=== PATIENT | female | born 1960 | race Caucasian/White ===

== ENCOUNTER 2018-02-25 15:20 | Emergency (ER) | payer OTHER ==
[2018-02-25] MEDS ORDERED: ACETAMINOPHEN 500 MG TAB ONE (15:55)
[2018-02-25] MEDS ORDERED: IBUPROFEN 200 MG TAB PO ONE (15:55)
--- NOTE | 2018-02-25 16:07 | EDPHYS ---
Physician Documentation [facility] Name: Libia Bronson Age: 57 yrs Sex: Female : 1960 Arrival Date: 02/25/2018 Time: 15:22 Bed 26 Private MD: ED Physician Asim Rizo HPI: 02/25 15:53 This 57 yrs old Female presents to ER via Ambulatory with complaints of wa Shoulder Pain. 15:53 The patient or guardian complains of Right shoulder pain. c/o pain x 5 months. states nd tore a tendon in R shoulder back in Sep 2017 and was sent to physical therapy. just cleared to go back to work. still having excruciating pain in R shoulder with tingling of the R arm. denies SOB, CP or diaphoresis.. right shoulder. Context: as noted in HPI above. Onset: The symptoms/episode began/occurred 5 month(s) ago. Modifying factors: the symptoms are alleviated by nothing. The symptoms are aggravated by lifting weight, movement, rotation of arm. Associated signs and symptoms: The patient has no apparent associated signs or symptoms. Severity of symptoms: At their worst the symptoms were moderate, in the emergency department the symptoms are actually worse. Treatment prior to arrival includes: no previous treatment. as noted in HPI above. The patient has not recently seen a physician. Historical: - Allergies: 15:28 No Known Allergies; aj - Home Meds: 15:28 None [Active]; aj - PMHx: 15:28 Hypertension; aj - PSHx: 15:28 Hysterectomy; Tonsillectomy; Kidney stents; aj - Immunization history:: Adult Immunizations up to date. - Social history:: Smoking status: Patient uses tobacco products, smokes one-half pack cigarettes per day. - Family history:: not pertinent. - Hospitalizations: : No recent hospitalization is reported. ROS: 15:57 Constitutional: Negative for fever, chills, and weight loss, Eyes: Negative for injury, wa pain, redness, and discharge, ENT: Negative for injury, pain, and discharge, Neck: Negative for injury, pain, and swelling, Cardiovascular: Negative for chest pain, palpitations, and edema, Respiratory: Negative for shortness of breath, cough, wheezing, and pleuritic chest pain, Abdomen/GI: Negative for abdominal pain, nausea, vomiting, diarrhea, and constipation, Back: Negative for injury and pain, : Negative for injury, bleeding, discharge, and swelling, Skin: Negative for injury, rash, and discoloration. 15:57 MS/extremity: Positive for pain, paresthesias, tenderness, of the right shoulder, Negative for deformity, swelling. 15:57 Neuro: Positive for numbness, tingling, of the right shoulder and right arm. 15:57 All other systems are negative. Exam: 16:00 Constitutional: This is a well developed, well nourished patient who is awake, alert, wa and in no acute distress. Head/Face: Normocephalic, atraumatic. Eyes: Pupils equal round and reactive to light, extra-ocular motions intact. Lids and lashes normal. Conjunctiva and sclera are non-icteric and not injected. Cornea within normal limits. Periorbital areas with no swelling, redness, or edema. ENT: Nares patent. No nasal discharge, no septal abnormalities noted. Tympanic membranes are normal and external auditory canals are clear. Oropharynx with no redness, swelling, or masses, exudates, or evidence of obstruction, uvula midline. Mucous membranes moist. Neck: Trachea midline, no thyromegaly or masses palpated, and no cervical lymphadenopathy. Supple, full range of motion without nuchal rigidity, or vertebral point tenderness. No Meningismus. Cardiovascular: Regular rate and rhythm with a normal S1 and S2. No gallops, murmurs, or rubs. Normal PMI, no JVD. No pulse deficits. Respiratory: Lungs have equal breath sounds bilaterally, clear to auscultation and percussion. No rales, rhonchi or wheezes noted. No increased work of breathing, no retractions or nasal flaring. Abdomen/GI: Soft, non-tender, with normal bowel sounds. No distension or tympany. No guarding or rebound. No evidence of tenderness throughout. Back: No spinal tenderness. No costovertebral tenderness. Full range of motion. Skin: Warm, dry with normal turgor. Normal color with no rashes, no lesions, and no evidence of cellulitis. Psych: Awake, alert, with orientation to person, place and time. Behavior, mood, and affect are within normal limits. 16:00 Musculoskeletal/extremity: Extremities: grossly normal except: noted in the right shoulder: tenderness, ROM: limited ROM in R shoulder due to pain. 16:00 Neuro: Orientation: is normal, Motor: motor strength diminished in RUE due to pain, Sensation: is normal. Vital Signs: 15:28 BP 188 / 100; Pulse 74; Resp 19; Temp 97.9; Pulse Ox 98% on R/A; Weight 79.83 kg; aj Height 5 ft. 2 in. (157.48 cm); Pain 7/10; 15:28 Body Mass Index 32.19 (79.83 kg, 157.48 cm) aj Procedures: 16:05 Performed sling: RUE placed in sling. post-placement distally neurovasc intact. pt wa tolerated well. advised prn use for comfort. MDM: 15:34 Patient medically screened. wa 16:02 Differential diagnosis: MRI report in the system from 10/14/17 of the R shoulder read wa as full-thickness tear of the supraspinatus tendon without retraction. Data reviewed: vital signs, nurses notes, radiologic studies. Special discussion: pt never had an ortho eval. will send to ortho for further eval. will place in sling. valium for nerve pain and relaxation. motrin prn. of noted, pt smokes cigs. advised against smoking. BP elevated. pain reproducible. no SOB, no chest pain or dizziness. ACS unlikely as a differential. 02/25 15:49 Order name: Sling: John BOOTHE; Complete Time: 16:03 nd Administered Medications: 15:58 Drug: Tylenol 1000 mg Route: PO; rk2 16:19 Follow up: Response: No adverse reaction rk2 15:58 Drug: Motrin 600 mg Route: PO; rk2 16:18 Follow up: Response: No adverse reaction rk2 Disposition: 02/25/18 16:07 Discharged to Home. Impression: Right Shoulder supraspinatus tendon tear. - Condition is Stable. - Prescriptions for Ibuprofen 600 mg Oral Tablet - take 1 tablet by ORAL route every 8 hours As needed take with food; 30 tablet. Valium 5 mg Oral Tablet - take 1 tablet by ORAL route At bedtime As needed; 5 tablet. - Medication Reconciliation Form, Thank You Letter, Antibiotic Education, Prescription Opioid Use, Work release form form. - Follow up: Pako Walsh MD; When: 2 - 3 days; Reason: Recheck today's complaints. - Problem is an ongoing problem. - Symptoms have improved. - Notes: wear sling. take medicines as prescribed. follow up with the orthopedists as discussed for further evaluation of the torn tendon in your shoulder Signatures: Trina Bowens, RN CYNDIE aj Asim Rizo MD MD wa Kidder, Rhonda, RN RN rk2
--- NOTE | 2018-02-25 16:07 | ER ---
Nurse's Notes [facility] Name: Libia Bronson Age: 57 yrs Sex: Female : 1960 Arrival Date: 02/25/2018 Time: 15:22 Bed 26 Private MD: Diagnosis: Right Shoulder supraspinatus tendon tear Presentation: 02/25 15:26 Presenting complaint: Patient states: Patient reports pain in right shoulder since aj September when she "tore a tendon". Reports tingling down right arm. Transition of care: patient was not received from another setting of care. Onset of symptoms was September 2017. Care prior to arrival: None. 15:26 Method Of Arrival: Ambulatory 15:26 Acuity: CLAIRE 4 aj Triage Assessment: 15:28 General: Appears in no apparent distress. uncomfortable, Behavior is calm, cooperative, aj appropriate for age. Pain: Complains of pain in anterior aspect of right shoulder Pain currently is 7 out of 10 on a pain scale. Neuro: Level of Consciousness is awake, alert, obeys commands, Oriented to person, place, time, situation. Respiratory: Airway is patent Respiratory effort is even, unlabored, Respiratory pattern is regular, symmetrical. Derm: Skin is intact, is healthy with good turgor, Skin is pink, warm \\T\\ dry. normal. Musculoskeletal: Reports pain in anterior aspect of right shoulder. Historical: - Allergies: 15:28 No Known Allergies; aj - Home Meds: 15:28 None [Active]; aj - PMHx: 15:28 Hypertension; aj - PSHx: 15:28 Hysterectomy; Tonsillectomy; Kidney stents; aj - Immunization history:: Adult Immunizations up to date. - Social history:: Smoking status: Patient uses tobacco products, smokes one-half pack cigarettes per day. - Family history:: not pertinent. - Hospitalizations: : No recent hospitalization is reported. Screenin:00 Abuse screen: Denies threats or abuse. rk2 16:00 Nutritional screening: No deficits noted. Tuberculosis screening: No symptoms or risk rk2 factors identified. Fall Risk None identified. Assessment: 16:00 General: Appears uncomfortable, well nourished, Behavior is calm, cooperative. Pain: rk2 Complains of pain in right shoulder and right arm and anterior aspect of right shoulder. Neuro: Level of Consciousness is alert, obeys commands, Oriented to person, place, time, situation. Respiratory: Airway is patent Respiratory effort is even, unlabored, Respiratory pattern is regular, symmetrical. 16:00 Derm: Skin is pink, warm \\T\\ dry. Musculoskeletal: Right shoulder pain. rk2 Vital Signs: 15:28 BP 188 / 100; Pulse 74; Resp 19; Temp 97.9; Pulse Ox 98% on R/A; Weight 79.83 kg; aj Height 5 ft. 2 in. (157.48 cm); Pain 7/10; 15:28 Body Mass Index 32.19 (79.83 kg, 157.48 cm) aj ED Course: 15:22 Patient arrived in ED. as 15:27 Triage completed. aj 15:28 Arm band placed on left wrist. Patient placed in an exam room. 15:30 Sheridan Fitzgerald RN is Primary Nurse. rk2 15:34 Asim Rizo MD is Attending Physician. tx 16:00 Patient has correct armband on for positive identification. Bed in low position. Call rk2 light in reach. 16:06 Pako Walsh MD is Referral Physician. wa 16:21 No provider procedures requiring assistance completed. Patient did not have IV access rk2 during this emergency room visit. Administered Medications: 15:58 Drug: Tylenol 1000 mg Route: PO; rk2 16:19 Follow up: Response: No adverse reaction rk2 15:58 Drug: Motrin 600 mg Route: PO; rk2 16:18 Follow up: Response: No adverse reaction rk2 Outcome: 16:07 Discharge ordered by . wa 16:21 Discharged to home ambulatory. rk2 16:21 Condition: unchanged 16:21 Discharge instructions given to patient, Prescriptions given X 2. 16:22 Patient left the ED. rk2 Signatures: Trina Bowens RN Marisol Eagle William, MD MD tx Sheridan Fitzgerald RN RN rk2
[2018-02-25 16:27] VITALS: BP 188/100; TEMP 97.9; O2SAT 98
== END 2018-02-25 16:22 | disposition home or self-care (01) ==
LOC: ER 15:20
DX: S46.811A Strain of other muscles, fascia and tendons at shoulder and upper arm level, right arm, initial encounter (principal); I10 Essential (primary) hypertension; F17.210 Nicotine dependence, cigarettes, uncomplicated; X58.XXXA Exposure to other specified factors, initial encounter; Y93.9 Activity, unspecified; Y92.9 Unspecified place or not applicable
CPT/HCPCS: 99283

== ENCOUNTER 2018-12-26 14:52 | Emergency (ER) | payer OTHER, SELFPAY ==
[2018-12-26] MEDS ORDERED: DIAZEPAM 5 MG TABLET ONE (17:05)
--- NOTE | 2018-12-26 17:12 | RAD REPORT ---
EXAM DESCRIPTION: CT - [id number] - 12/26/2018 4:53 pm CLINICAL HISTORY: Blunt force trauma to the head, headache, neck pain COMPARISON: None. TECHNIQUE: Axial 5 mm thick images of the head were obtained. Axial 2 mm thick images of the cervic al spine were obtained with sagittal and coronal reconstruction images generated and reviewed. All CT scans are performed using dose optimization technique as appropriate and may include automated exposure control or mA/KV adjustment according to patient size. FINDINGS: No intracranial hemorrhage, mass, edema or acute intracranial finding. No suspicion for ac vish infarction. No extra-axial fluid collections. Mastoid air cells and paranasal sinuses are clear o f significant finding. No globe or orbit abnormality seen. Small left frontal scalp hematoma is prese nt. Cervical body height and alignment are normal. C4-5, C5-6 and C6-7 disc space narrowing present. Mild bony foraminal encroachment at C4-5 and C5-6. Mild to moderate left C6-7 bony foraminal encroachment . No fracture or acute bony abnormality. No paraspinal mass or hematoma. IMPRESSION: No intracranial abnormality. Patient has a small left frontal scalp hematoma. Underlying bone is intact. Cervical spine degenerative changes are present without acute finding.
--- NOTE | 2018-12-26 17:16 | EDPHYS ---
Physician Documentation [facility] Name: Libia Bronson Age: 58 yrs Sex: Female : 1960 Arrival Date: 12/26/2018 Time: 14:56 Bed 11 Private MD: Jose Alejandro Juárez ED Physician Jimmy Ibrahim HPI: 12/26 17:20 This 58 yrs old Female presents to ER via Ambulatory with complaints of snw Closed Head Injury-Adult, Dizziness. 17:20 The patient's problem is reported as headache. Onset: The symptoms/episode snw began/occurred suddenly, and became persistent. Duration: The episode is continuous. Context: occurred at work, occurred while the patient was working, Possible contributing factors include: none, no LOC. Associated signs and symptoms: Pertinent positives: headache. Severity of symptoms: At their worst the symptoms were moderate in the emergency department the symptoms are unchanged. Patient's baseline: Neuro: alert and fully oriented, Motor: no deficits, Ambulation: walks without assistance, Speech: normal. The patient has not experienced similar symptoms in the past. It is unknown whether or not the patient has recently seen a physician. Historical: - Allergies: 15:00 No Known Drug Allergies; hb - PMHx: 15:00 Hypertension; hb - PSHx: 15:00 Hysterectomy; Tonsillectomy; Kidney stents; hb - Immunization history:: Adult Immunizations up to date. - Social history:: Smoking status: Patient/guardian denies using tobacco. - Ebola Screening: : No symptoms or risks identified at this time. ROS: 17:05 Constitutional: Negative for fever, chills, and weight loss, Eyes: Negative for injury, snw pain, redness, and discharge, ENT: Negative for injury, pain, and discharge, Neck: Negative for injury, pain, and swelling, Cardiovascular: Negative for chest pain, palpitations, and edema, Respiratory: Negative for shortness of breath and pleuritic chest pain, + cough and wheezing Abdomen/GI: Negative for abdominal pain, nausea, vomiting, diarrhea, and constipation, Back: Negative for injury and pain, : Negative for injury, bleeding, discharge, and swelling, MS/Extremity: Negative for injury and deformity, Skin: Negative for injury, rash, and discoloration. 17:05 Neuro: Positive for headache, s/p being struck in the head with a large can from an upper shelf. Exam: 17:05 Constitutional: This is a well developed, well nourished patient who is awake, alert, snw and in no acute distress. Head/Face: Normocephalic, atraumatic. Eyes: Pupils equal round and reactive to light, extra-ocular motions intact. Lids and lashes normal. Conjunctiva and sclera are non-icteric and not injected. Cornea within normal limits. Periorbital areas with no swelling, redness, or edema. ENT: Nares patent. No nasal discharge, no septal abnormalities noted. Tympanic membranes are normal and external auditory canals are clear. Oropharynx with no redness, swelling, or masses, exudates, or evidence of obstruction, uvula midline. Mucous membranes moist. Neck: Trachea midline, no thyromegaly or masses palpated, and no cervical lymphadenopathy. Supple, full range of motion without nuchal rigidity, or vertebral point tenderness. No Meningismus. Chest/axilla: Normal chest wall appearance and motion. Nontender with no deformity. No lesions are appreciated. Cardiovascular: Regular rate and rhythm with a normal S1 and S2. No gallops, murmurs, or rubs. Normal PMI, no JVD. No pulse deficits. Respiratory: Lungs have equal breath sounds bilaterally, clear to auscultation and percussion. No rales, rhonchi or wheezes noted. No increased work of breathing, no retractions or nasal flaring. Abdomen/GI: Soft, non-tender, with normal bowel sounds. No distension or tympany. No guarding or rebound. No evidence of tenderness throughout. Back: No spinal tenderness. No costovertebral tenderness. Full range of motion. Skin: Warm, dry with normal turgor. Normal color with no rashes, no lesions, and no evidence of cellulitis. MS/ Extremity: Pulses equal, no cyanosis. Neurovascular intact. Full, normal range of motion. Neuro: Awake and alert, GCS 15, oriented to person, place, time, and situation. Cranial nerves II-XII grossly intact. Motor strength 5/5 in all extremities. Sensory grossly intact. Cerebellar exam normal. Normal gait. Psych: Awake, alert, with orientation to person, place and time. Behavior, mood, and affect are within normal limits. 17:22 Radiologist reports: cervical degenerative changes, no blood, + scalp hematoma, no snw underlying bony abnormality Vital Signs: 15:01 BP 171 / 93; Pulse 59; Resp 18; Temp 98.2; Pulse Ox 96% ; Pain 8/10; hb Morris Coma Score: 15:00 Eye Response: spontaneous(4). Verbal Response: oriented(5). Motor Response: obeys hb commands(6). Total: 15. MDM: 16:34 Patient medically screened. snw 17:17 Data reviewed: vital signs, nurses notes. Data interpreted: Pulse oximetry: on room air snw is 96 %. Interpretation: acceptable. Counseling: I had a detailed discussion with the patient and/or guardian regarding: the historical points, exam findings, and any diagnostic results supporting the discharge/admit diagnosis, the presence of at least one elevated blood pressure reading (>120/80) during this emergency department visit, radiology results, the need for outpatient follow up, to return to the emergency department if symptoms worsen or persist or if there are any questions or concerns that arise at home. 12/26 15:07 Order name: CT Head C Spine; Complete Time: 17:14 snw Administered Medications: 17:06 Drug: Valium 5 mg Route: PO; ss Disposition: 18:37 Co-signature as Attending Physician, Jimmy Ibrahim MD. rn Disposition: 12/26/18 17:16 Discharged to Home. Impression: Unspecified injury of head, Scalp hematoma, Other cervical disc degeneration. - Condition is Stable. - Discharge Instructions: Cervical Radiculopathy, Head Injury, Adult, Hematoma, Hypertension. - Prescriptions for Diclofenac Sodium 75 mg Oral Tablet Sustained Release - take 1 tablet by ORAL route 2 times per day; 30 tablet. orphenadrine citrate 100 mg Oral Tablet Sustained Release - take 1 tablet by ORAL route 2 times per day As needed; 20 tablet. - Work release form, Medication Reconciliation Form, Thank You Letter, Antibiotic Education, Prescription Opioid Use form. - Follow up: Jose Alejandro Juárez MD; When: 1 - 2 days; Reason: Recheck today's complaints, Continuance of care, Re-evaluation by your physician. Follow up: Emergency Department; When: As needed; Reason: Worsening of condition. Signatures: Dispatcher [employer] EDMS Gabby Clark, TOOL ENGINE LATHE SET UP OPERATOR-C TOOL ENGINE LATHE SET UP OPERATOR-Csnw IbrahimJimmy hampton MD MD rn Smirch, Shelby, RN RN ss Lina Do RN RN Corrections: (The following items were deleted from the chart) 15:28 15:03 Head Brain Wo Cont+CT.RAD.BRZ ordered. EDMS EDMS 17:28 17:16 12/26/2018 17:16 Discharged to Home. Impression: Unspecified injury of head; ss Scalp hematoma; Other cervical disc degeneration. Condition is Stable. Forms are Medication Reconciliation Form, Thank You Letter, Antibiotic Education, Prescription Opioid Use. Follow up: Jose Alejandro Juárez; When: 1 - 2 days; Reason: Recheck today's complaints, Continuance of care, Re-evaluation by your physician. Follow up: Emergency Department; When: As needed; Reason: Worsening of condition. snw
--- NOTE | 2018-12-26 17:16 | ER ---
Nurse's Notes [facility] Name: Libia Bronson Age: 58 yrs Sex: Female : 1960 Arrival Date: 12/26/2018 Time: 14:56 Bed 11 Private MD: Jose Alejandro Juárez Diagnosis: Unspecified injury of head;Scalp hematoma;Other cervical disc degeneration Presentation: 12/26 15:00 Mechanism of Injury: resulted from. hb 15:00 Presenting complaint: Patient states: "A can of caramel fell down and hit me on the head when I was reaching for another can on the top shelf." C/o headache 06/25 and dizziness. Denies LOC. Mild redness noted to left forehead. Transition of care: patient was not received from another setting of care. Onset of symptoms was December 26, 2018. Risk Assessment: Do you want to hurt yourself or someone else? Patient reports no desire to harm self or others. Care prior to arrival: None. 15:00 Method Of Arrival: Ambulatory hb 15:00 Acuity: CLAIRE 4 hb 17:00 Initial Sepsis Screen: Does the patient meet any 2 criteria? Does the patient have a ss suspected source of infection? No. Patient's initial sepsis screen is negative. Historical: - Allergies: 15:00 No Known Drug Allergies; hb - PMHx: 15:00 Hypertension; hb - PSHx: 15:00 Hysterectomy; Tonsillectomy; Kidney stents; hb - Immunization history:: Adult Immunizations up to date. - Social history:: Smoking status: Patient/guardian denies using tobacco. - Ebola Screening: : No symptoms or risks identified at this time. Screenin:27 Abuse screen: Denies threats or abuse. Denies injuries from another. Nutritional ss screening: No deficits noted. Tuberculosis screening: No symptoms or risk factors identified. Never had TB. Fall Risk None identified. Assessment: 17:00 General: Appears in no apparent distress. comfortable, Behavior is calm, cooperative, ss Denies fever, feeling ill, fatigue, chills. Pain: Complains of pain in scalp Pain currently is 7 out of 10 on a pain scale. Quality of pain is described as aching, tender, Is continuous. Neuro: Level of Consciousness is awake, alert, obeys commands, Oriented to person, place, time, situation, Speech is normal, Facial symmetry appears normal, Pupils are PERRLA, Reports mild dizziness. Cardiovascular: Capillary refill < 3 seconds is brisk in bilateral fingers. Respiratory: Airway is patent Respiratory effort is even, unlabored, Respiratory pattern is regular, symmetrical. GI: Patient currently denies abdominal pain, nausea, vomiting. EENT: Oral mucosa is moist. Throat is clear. Musculoskeletal: Circulation, motion, and sensation intact. Capillary refill < 3 seconds, is brisk, in bilateral fingers. Range of motion: intact in all extremities, Swelling absent. 17:27 Reassessment: Patient appears in no apparent distress at this time. Patient and/or ss family updated on plan of care and expected duration. Pain level reassessed. Patient is alert, oriented x 3, equal unlabored respirations, skin warm/dry/pink. Neuro: Level of Consciousness is awake, alert, obeys commands. Derm: Skin is intact, is healthy with good turgor, Skin is pink, warm \\T\\ dry. normal. Vital Signs: 15:01 BP 171 / 93; Pulse 59; Resp 18; Temp 98.2; Pulse Ox 96% ; Pain 8/10; hb [place] Coma Score: 15:00 Eye Response: spontaneous(4). Verbal Response: oriented(5). Motor Response: obeys hb commands(6). Total: 15. ED Course: 14:56 Patient arrived in ED. sb2 14:57 Jose Alejandro Juárez MD is Private Physician. sb2 14:59 Arm band placed on. hb 15:01 Triage completed. hb 16:34 Gabby Clark FNP-C is [facility]. snw 16:34 Jimmy Ibrahim MD is Attending Physician. snw 16:53 CT Head C Spine In Process Unspecified. EDMS 16:53 CT completed. Patient tolerated procedure well. bq 17:15 Jose Alejandro Juárez MD is Referral Physician. snw 17:27 Rosa Collins, CYNDIE is Primary Nurse. ss 17:27 Patient has correct armband on for positive identification. Bed in low position. Call ss light in reach. 17:28 No provider procedures requiring assistance completed. IV discontinued, intact, ss bleeding controlled, No redness/swelling at site. Pressure dressing applied. Administered Medications: 17:06 Drug: Valium 5 mg Route: PO; ss Outcome: 17:16 Discharge ordered by MD. snw 17:28 Discharged to home ambulatory. 17:28 Condition: good 17:28 Discharge instructions given to patient, Instructed on discharge instructions, follow up and referral plans. medication usage, Demonstrated understanding of instructions, follow-up care, medications, Prescriptions given X 2. 17:28 Patient left the ED. Signatures: Dispatcher [employer] EDMS Gabby Clark, GROUP SUPERVISOR YARD-C GROUP SUPERVISOR YARD-Csnw Meredith Aparicio Rosa Collins RN RN Lina Do RN RN Monica Gómez sb2 Corrections: (The following items were deleted from the chart) 15:03 15:00 Presenting complaint: Patient states: A can of caramel fell down and hit me on hb the head when I was reaching for another can on the top shelf. Denies LOC. Mild redness noted to left forehead. 15:04 15:00 Presenting complaint: Patient states: "A can of caramel fell down and hit me on hb the head when I was reaching for another can on the top shelf." C/o headache 10/10 and dizziness. Denies LOC. Mild redness noted to left forehead.
[2018-12-26 17:55] VITALS: BP 171/93; TEMP 98.2; O2SAT 96
== END 2018-12-26 17:28 | disposition home or self-care (01) ==
LOC: ER 14:52
DX: S09.90XA Unspecified injury of head, initial encounter (principal); S00.03XA Contusion of scalp, initial encounter; W20.8XXA Other cause of strike by thrown, projected or falling object, initial encounter; M50.30 Other cervical disc degeneration, unspecified cervical region
CPT/HCPCS: 70450; 72125; 99283

== ENCOUNTER 2018-12-30 13:11 | Emergency (ER) | payer SELFPAY ==
--- NOTE | 2018-12-30 15:12 | RAD REPORT ---
EXAM DESCRIPTION: CT - Head Brain Wo Cont - 12/30/2018 2:56 pm CLINICAL HISTORY: Transient alteration of awareness, dizziness COMPARISON: None. TECHNIQUE: Axial 5 mm thick images of the head were obtained without IV contrast. All CT scans are performed using dose optimization technique as appropriate and may include automated exposure control or mA/KV adjustment according to patient size. FINDINGS: No intracranial hemorrhage, mass, edema or shift of mid-line structures. No acute infarcti on changes seen. No abnormal extra-axial fluid collections. Ventricles are normal. Mastoid air cells and visualized portions of the paranasal sinuses are clear. No acute bony findings. A 2 centimeter area of hyperdensity is present in the left lateral frontal scalp. This is presumed to be hematoma from trauma. IMPRESSION: No intracranial abnormality. Small scalp hematoma in the lateral left frontal region. Underlying bone is intact.
[2018-12-30] MEDS ORDERED: IBUPROFEN 200 MG TAB PO ONE (15:13)
[2018-12-30] MEDS ORDERED: IBUPROFEN 400 MG TAB ONE (15:13)
--- NOTE | 2018-12-30 15:14 | RAD REPORT ---
EXAM DESCRIPTION: CT - Orbits Wo Con W/ Mpr - 12/30/2018 2:56 pm CLINICAL HISTORY: Facial pain, left-sided facial trauma COMPARISON: None. TECHNIQUE: Axial 2 millimeter thick images of the facial bones were obtained with sagittal and coron al reconstruction imaging. All CT scans are performed using dose optimization technique as appropriate and may include automated exposure control or mA/KV adjustment according to patient size. FINDINGS: No facial bone fracture. No air-fluid level in the paranasal sinuses. Scattered mucosal th ickening in the left maxillary sinus and ethmoid air cells. Minimal right deviation of the nasal sept um. Condyles of the mandible are normally positioned. No globe or orbital content abnormality seen. N o air or foreign body in the soft tissues. IMPRESSION: No facial bone fracture. No acute orbit or sinus finding.
--- NOTE | 2018-12-30 16:31 | ER ---
Nurse's Notes [facility] Name: Libia Bronson Age: 58 yrs Sex: Female : 1960 Arrival Date: 12/30/2018 Time: 13:14 Bed 15 Private MD: Unknown, Unknown Diagnosis: Superficial injury of head;Left frontal hematoma, left periorbital pain/contusion Presentation: 12/30 13:17 Presenting complaint: Patient states: Thursday i came here i got hit by a big can in my tw2 head, they did cat scan, now the pain has increased behind my left eye, i have been having severe headaches and dizziness and i felt like i was going to pass out today, my equilibrium seems to be a little bit off. Transition of care: patient was not received from another setting of care. Mechanism of Injury: "Thursday I was hit with a big can at work in the head". The patient denies any loss of vision. Onset of symptoms was December 30, 2018. Risk Assessment: Do you want to hurt yourself or someone else? Patient reports no desire to harm self or others. Initial Sepsis Screen: Does the patient meet any 2 criteria? No. Patient's initial sepsis screen is negative. Does the patient have a suspected source of infection? No. Patient's initial sepsis screen is negative. Care prior to arrival: None. 13:17 Method Of Arrival: Wheelchair tw2 13:17 Acuity: CLAIRE 3 tw2 Triage Assessment: 13:19 General: Appears in no apparent distress. Behavior is calm, cooperative, appropriate tw2 for age. Pain: Complains of pain in face and left eye. EENT: Eyes bruising noted to left eye. Reports. Neuro: Reports dizziness, headache. Historical: - Allergies: 13:19 No Known Drug Allergies; tw2 - Home Meds: 13:19 None [Active]; tw2 - PMHx: 13:19 Hypertension; tw2 - PSHx: 13:19 Hysterectomy; Tonsillectomy; Kidney stents; tw2 - Immunization history:: Adult Immunizations. - Social history:: Smoking status: Patient uses tobacco products, smokes one pack cigarettes per day. - Ebola Screening: : Patient denies travel to an Ebola-affected area in the 21 days before illness onset. Screenin:55 Abuse screen: Denies threats or abuse. Nutritional screening: No deficits noted. rb1 Tuberculosis screening: No symptoms or risk factors identified. Fall Risk None identified. Assessment: 13:55 General: Appears uncomfortable, Behavior is calm, cooperative. General: Reports fatigue rb1 for. Pain: Complains of pain in left eye Pain currently is 8 out of 10 on a pain scale. Pain began Thursday. Neuro: Level of Consciousness is awake, alert, obeys commands, Oriented to person, place, time, situation. Neuro: Reports dizziness. Cardiovascular: Capillary refill < 3 seconds is brisk in bilateral fingers. Respiratory: Airway is patent Respiratory effort is even, unlabored, Respiratory pattern is regular, symmetrical. GI: Reports nausea. : No signs and/or symptoms were reported regarding the genitourinary system. Derm: Bruising that is dark purple, on left eye. Musculoskeletal: Range of motion: intact in all extremities. 14:55 Reassessment: Patient appears in no apparent distress at this time. No changes from rb1 previously documented assessment. 15:50 Reassessment: Patient appears in no apparent distress at this time. Patient and/or rb1 family updated on plan of care and expected duration. Pain level reassessed. Patient is alert, oriented x 3, equal unlabored respirations, skin warm/dry/pink. 16:45 Reassessment: Patient appears in no apparent distress at this time. Received order for rb1 Mineral 7.5 PO x once. 100% verbal read back. Vital Signs: 13:18 BP 160 / 80; Pulse 64; Resp 17; Temp 97.6(TE); Pulse Ox 100% on R/A; Weight 74.39 kg tw2 (R); Height 5 ft. 2 in. (157.48 cm); Pain 8/10; 14:30 BP 162 / 74; Pulse 58; Resp 18; Pulse Ox 99% on R/A; rb1 15:30 BP 158 / 77; Pulse 57; Resp 17; Pulse Ox 99% on R/A; rb1 16:30 BP 153 / 85; Pulse 61; Resp 16; Pulse Ox 100% on R/A; rb1 13:18 Body Mass Index 30.00 (74.39 kg, 157.48 cm) tw2 [place] Coma Score: 14:38 Eye Response: spontaneous(4). Verbal Response: oriented(5). Motor Response: obeys kdr commands(6). Total: 15. ED Course: 13:14 Patient arrived in ED. ag5 13:15 Unknown, Unknown is Private Physician. ag5 13:18 Triage completed. tw2 13:19 Arm band placed on. tw2 13:55 Krunal Lunsford MD is Attending Physician. kdr 13:55 Patient has correct armband on for positive identification. Bed in low position. Call rb1 light in reach. Side rails up X 1. Pulse ox on. NIBP on. 14:12 Carmen Amaro, RN is Primary Nurse. rb1 14:56 CT completed. Patient tolerated procedure well. Patient moved to CT. Patient moved back al from CT. 14:57 CT Head Brain wo Cont In Process Unspecified. EDMS 14:57 Orbits Wo Con W/ Mpr In Process Unspecified. EDMS 17:00 No provider procedures requiring assistance completed. Patient did not have IV access rb1 during this emergency room visit. Administered Medications: 15:05 Drug: Ibuprofen 600 mg Route: PO; rb1 15:40 Follow up: Response: No adverse reaction; Pain is decreased rb1 16:52 Drug: Mineral (7.5 mg-325 mg) 1 tabs Route: PO; rb1 16:52 Follow up: Response: Medication administered at discharge. rb1 Outcome: 16:30 Discharge ordered by MD. kdr 17:00 Patient left the ED. rb1 17:00 Discharged to home ambulatory, with family. rb1 17:00 Condition: stable 17:00 Discharge instructions given to patient, Instructed on discharge instructions, follow up and referral plans. medication usage, Demonstrated understanding of instructions, follow-up care, medications, Prescriptions given X 1. Signatures: Dispatcher [employer] EDRI Krunal Lunsford MD MD [facility] Carmen Amaro, RN RN rb1 Cherise Solorzano RN RN 2 [place] ag5 Corrections: (The following items were deleted from the chart) 17:11 17:10 Patient left the ED. rb1 rb1
--- NOTE | 2018-12-30 16:31 | EDPHYS ---
Physician Documentation [facility] Name: Libia Bronson Age: 58 yrs Sex: Female : 1960 Arrival Date: 12/30/2018 Time: 13:14 Bed 15 Private MD: Unknown, Unknown ED Physician Krunal Lunsford HPI: 12/30 14:37 This 58 yrs old Female presents to ER via Wheelchair with complaints of Eye kdr Pain, Dizziness, Facial Injury. 14:38 The patient or guardian reports injury, pain, swelling, tenderness. The complaints kdr affect the middle aspect of left eyebrow, outer aspect of left eyebrow, left supraorbital ridge, left upper eyelid and left lower eyelid. Context of injury: The problem was sustained at work, resulted from a direct blow, a heavy object, a solid object, Can/jar fell from a shelf onto her face on Thursday. Onset: The symptoms/episode began/occurred suddenly, On Thursday. Associated signs and symptoms: Loss of consciousness: This patient did not experience any loss of consciousness. Pertinent positives: headache, Dizziness. Severity of symptoms: At their worst the symptoms were mild, moderate, just prior to arrival, in the emergency department the symptoms are unchanged. The patient has not experienced similar symptoms in the past. The patient has not recently seen a physician. Historical: - Allergies: 13:19 No Known Drug Allergies; tw2 - Home Meds: 13:19 None [Active]; tw2 - PMHx: 13:19 Hypertension; tw2 - PSHx: 13:19 Hysterectomy; Tonsillectomy; Kidney stents; tw2 - Immunization history:: Adult Immunizations. - Social history:: Smoking status: Patient uses tobacco products, smokes one pack cigarettes per day. - Ebola Screening: : Patient denies travel to an Ebola-affected area in the 21 days before illness onset. ROS: 14:38 Constitutional: Negative for fever, chills, and weight loss, Eyes: Negative for injury, kdr pain, redness, and discharge, Neck: Negative for injury, pain, and swelling, Cardiovascular: Negative for chest pain, palpitations, and edema, Respiratory: Negative for shortness of breath, cough, wheezing, and pleuritic chest pain, Abdomen/GI: Negative for abdominal pain, nausea, vomiting, diarrhea, and constipation, Back: Negative for injury and pain. 14:38 ENT: Positive for Left periorbital and infra orbital pain. Exam: 14:38 Constitutional: This is a well developed, well nourished patient who is awake, alert, kdr and in no acute distress. 14:38 Head/face: Noted is contusion, that is superficial, of the forehead, left cheek and left jew, ecchymosis, that is mild, of the forehead and left cheek, hematoma, that is mild, of the left frontal area and left temporal area. 14:38 Eyes: Sclera: injected. Vital Signs: 13:18 BP 160 / 80; Pulse 64; Resp 17; Temp 97.6(TE); Pulse Ox 100% on R/A; Weight 74.39 kg tw2 (R); Height 5 ft. 2 in. (157.48 cm); Pain 8/10; 14:30 BP 162 / 74; Pulse 58; Resp 18; Pulse Ox 99% on R/A; rb1 15:30 BP 158 / 77; Pulse 57; Resp 17; Pulse Ox 99% on R/A; rb1 16:30 BP 153 / 85; Pulse 61; Resp 16; Pulse Ox 100% on R/A; rb1 13:18 Body Mass Index 30.00 (74.39 kg, 157.48 cm) tw2 [place] Coma Score: 14:38 Eye Response: spontaneous(4). Verbal Response: oriented(5). Motor Response: obeys kdr commands(6). Total: 15. MDM: 14:38 Data reviewed: vital signs, nurses notes, radiologic studies. Counseling: I had a kdr detailed discussion with the patient and/or guardian regarding: the historical points, exam findings, and any diagnostic results supporting the discharge/admit diagnosis, radiology results. 16:30 Patient medically screened. kdr 12/30 14:37 Order name: CT Head Brain wo Cont; Complete Time: 16:28 kdr 12/30 14:44 Order name: Orbits Wo Con W/ Mpr; Complete Time: 16:28 EDMS Administered Medications: 15:05 Drug: Ibuprofen 600 mg Route: PO; rb1 15:40 Follow up: Response: No adverse reaction; Pain is decreased rb1 16:52 Drug: [place] (7.5 mg-325 mg) 1 tabs Route: PO; rb1 16:52 Follow up: Response: Medication administered at discharge. rb1 Disposition: 12/30/18 16:30 Discharged to Home. Impression: Superficial injury of head, Left frontal hematoma, left periorbital pain/contusion. - Condition is Stable. - Discharge Instructions: Head Injury, Adult, [id number], Facial or Scalp Contusion, [place]. - Prescriptions for Tramadol 50 mg Oral Tablet - take 1 tablet by ORAL route every 8 hours as needed; 12 tablet. - Medication Reconciliation Form, Thank You Letter, Work release form form. - Follow up: Private Physician; When: 2 - 3 days; Reason: If symptoms return, Further diagnostic work-up, Recheck today's complaints, Continuance of care, Re-evaluation by your physician. - Problem is new. - Symptoms are unchanged. Signatures: Dispatcher [employer] [facility] Krunal Lunsford MD MD [facility] Carmen Amaro RN RN rb1 Cherise Solorzano RN RN tw2 Corrections: (The following items were deleted from the chart) 14:44 14:40 Orbit W/Wo ordered. [facility] 17:10 16:30 12/30/2018 16:30 Discharged to Home. Impression: Superficial injury of head; Left rb1 frontal hematoma, left periorbital pain/contusion. Condition is Stable. Forms are Medication Reconciliation Form, Thank You Letter, Antibiotic Education, Prescription Opioid Use. Follow up: Private Physician; When: 2 - 3 days; Reason: If symptoms return, Further diagnostic work-up, Recheck today's complaints, Continuance of care, Re-evaluation by your physician. Problem is new. Symptoms are unchanged. kdr
[2018-12-30] MEDS ORDERED: HYDROCODONE/APAP 7.5/325 MG TAB ONE (16:58)
[2018-12-30 18:14] VITALS: TEMP 97.6
[2018-12-30 18:23] VITALS: BP 153/85; O2SAT 100
== END 2018-12-30 17:10 | disposition home or self-care (01) ==
LOC: ER 13:11
DX: S00.90XA Unspecified superficial injury of unspecified part of head, initial encounter (principal); S05.12XA Contusion of eyeball and orbital tissues, left eye, initial encounter; S00.83XA Contusion of other part of head, initial encounter; W22.8XXA Striking against or struck by other objects, initial encounter; Y93.89 Activity, other specified; Y92.89 Other specified places as the place of occurrence of the external cause; Y99.8 Other external cause status; F17.210 Nicotine dependence, cigarettes, uncomplicated; I10 Essential (primary) hypertension
CPT/HCPCS: 70450; 70480; 76377; 99284